=== PATIENT | female | born 1990 | race Caucasian/White ===

== ENCOUNTER 2023-08-28 23:52 | Emergency (ER) | payer SELFPAY ==
[2023-08-29 00:11] VITALS: BP 148/97
[2023-08-29] MEDS: Sodium Chloride 0.9% 1,000 ML IV ONE (00:43)
[2023-08-29] MEDS: diphenhydrAMINE 50 MG/ML SDV IVPUSH ONE (00:44)
[2023-08-29] MEDS: Sodium Chloride 0.9% 2.5 ML Syringe FLUSH PRN (00:44)
[2023-08-29] MEDS: Metoclopramide 10 MG/2 ML SDV IVPUSH ONE (00:44)
[2023-08-29] MEDS: Sodium Chloride 0.9% 10 ML Syringe FLUSH PRN (00:44)
[2023-08-29 01:00] LABS: BASOPHILS ABSOLUTE AUTO 0.02 K/uL (0.00-0.20); BASOPHILS PERCENT AUTO 0.2 % (0.0-1.0); EOSINOPHILS ABSOLUTE AUTO 0.28 K/uL (0.00-0.45); EOSINOPHILS PERCENT AUTO 3.1 % (0.0-6.0); HEMATOCRIT 38.7 % (37.0-47.0); HEMOGLOBIN 13.1 g/dL (12.0-16.0); IMMATURE GRAN ABSOLUTE AUTO 0.04 K/uL (0.00-0.05); IMMATURE GRAN PERCENT AUTO 0.4 % (0.0-0.4); LYMPHOCYTES PERCENT AUTO 31.5 % (24.0-44.0); MEAN CORPUSCULAR HEMOGLOBIN 29.4 pg (28.0-32.0); MEAN CORPUSCULAR HGB CONC 33.9 g/dL (32.0-36.0); MEAN PLATELET VOLUME 8.4 fL (9.4-12.3); MONOCYTES ABSOLUTE AUTO 0.62 K/uL (0.00-0.80); NEUTROPHILS ABSOLUTE AUTO 5.13 K/uL (1.80-7.70); NEUTROPHILS PERCENT AUTO 57.8 % (41.0-71.0); PLATELET COUNT,PLT 245 K/uL (150-400); RED BLOOD CELL COUNT 4.45 M/uL (4.10-5.30); WHITE BLOOD CELL COUNT,WBC 8.89 K/uL (3.9-11.3)
[2023-08-29 01:22] LABS: BLOOD UREA NITROGEN,BUN 9 mg/dL (7.0-18.0); CALCIUM 9.3 mg/dL (8.5-10.1); CARBON DIOXIDE,CO2 29.3 mmol/L (21.0-32.0); CHLORIDE,CL 101 mmol/L (98-107); CREATININE 0.8 mg/dL (0.6-1.0); ESTIMATED GFR 99 mL/min (>60); GLUCOSE RANDOM 129 mg/dL (74-106); POTASSIUM,K 4.1 mmol/L (3.5-5.1); SODIUM,NA 136 mmol/L (136-145)
[2023-08-29] MEDS: Bupivacaine 0.5% 10 ML SDV INJECT ONE (02:09)
[2023-08-29] MEDS: Lidocaine 1% 5 ML VIAL INJECT ONE (02:09)
[2023-08-29] MEDS: Ketorolac 30 MG/ML SDV IVPUSH ONE (02:27)
[2023-08-29 02:57] VITALS: PULSE 87
== END 2023-08-29 02:57 | disposition home or self-care (01) ==
LOC: MW.ED 23:52
DX: R51.9 Headache, unspecified (principal); M54.2 Cervicalgia; Z79.899 Other long term (current) drug therapy; Z90.49 Acquired absence of other specified parts of digestive tract; Z75.8 Other problems related to medical facilities and other health care
CPT/HCPCS: 36415; 64450; 70450; 80048; 85025; 96374; 96375; 99284; J0665; J1200; J1885; J2765; J3490; J7030

== ENCOUNTER 2025-04-29 18:51 | Observation (INO) | payer BC ==
[2025-04-29 19:43] LABS: BASOPHILS ABSOLUTE AUTO 0.02 K/uL (0.00-0.20); BASOPHILS PERCENT AUTO 0.1 % (0.0-1.0); EOSINOPHILS ABSOLUTE AUTO 0.12 K/uL (0.00-0.45); EOSINOPHILS PERCENT AUTO 0.9 % (0.0-6.0); IMMATURE GRAN ABSOLUTE AUTO 0.04 K/uL (0.00-0.05); IMMATURE GRAN PERCENT AUTO 0.3 % (0.0-0.4); LYMPHOCYTES ABSOLUTE AUTO 2.25 K/uL (1.00-4.80); LYMPHOCYTES PERCENT AUTO 16.4 % (24.0-44.0); MEAN PLATELET VOLUME 8.6 fL (9.4-12.3); MONOCYTES ABSOLUTE AUTO 0.72 K/uL (0.00-0.80); MONOCYTES PERCENT AUTO 5.3 % (0.0-8.0); NEUTROPHILS ABSOLUTE AUTO 10.54 K/uL (1.80-7.70); NEUTROPHILS PERCENT AUTO 77.0 % (41.0-71.0); NRBC ABSOLUTE 0.00 K/uL (0.00-0.02); NRBC PERCENT 0.0 /100WBC (0.0-0.2); PLATELET COUNT,PLT 251 K/uL (150-400); RED BLOOD CELL COUNT 4.62 M/uL (4.10-5.30); WHITE BLOOD CELL COUNT,WBC 13.69 K/uL (3.9-11.3)
[2025-04-29] MEDS: Ketorolac 30 MG/ML SDV IVPUSH ONE (19:58)
[2025-04-29] MEDS: Ondansetron 4 MG/2 ML SDV IVPUSH ONE (19:58)
[2025-04-29 20:23] LABS: A/G RATIO 0.9 (0.9-1.6); ALANINE AMINOTRANSFERASE,ALT 47.0 IU/L (14-63); ASPARTATE AMNIOTRANSFERASE,AST 23.0 IU/L (15-37); BILIRUBIN TOTAL 0.4 mg/dL (0.2-1.0); BLOOD UREA NITROGEN,BUN 10.0 mg/dL (7.0-18.0); CARBON DIOXIDE,CO2 28.7 mmol/L (21.0-32.0); CHLORIDE,CL 106.0 mmol/L (98-107); CREATININE 0.9 mg/dL (0.6-1.0); EST CRCL DRUG DOSING (CG) 78.51 mL/min; GLUCOSE RANDOM 118.0 mg/dL (74-106); POTASSIUM,K 4.3 mmol/L (3.5-5.1); PROTEIN TOTAL,TP 7.7 g/dL (6.4-8.2); SODIUM,NA 142.0 mmol/L (136-145)
[2025-04-29 20:25] LABS: ESTIMATED GFR 86.0 mL/min (>60)
[2025-04-29] MEDS: Iopamidol 755 MG/ML 500 ML Multipack Bottle IVPUSH STA (20:55)
[2025-04-29] MEDS: Lactated Ringers 1,000 ML IV SCH (23:08)
[2025-04-30] MEDS: Ondansetron 4 MG/2 ML SDV IVPUSH PRN ×2 (00:43→12:35)
[2025-04-30] MEDS: Ketorolac 30 MG/ML SDV IVPUSH PRN (02:54)
[2025-04-30] MEDS ORDERED: propofoL 1,000 MG/100 ML 100 ML ONE (08:05)
[2025-04-30] MEDS ORDERED: Ropivacaine 0.5% 5 MG/ML 30 ML SDV ONE (08:05)
[2025-04-30] MEDS ORDERED: dexmedeTOMIDine HCl 200 MCG/2 ML SDV ONE (08:06)
[2025-04-30] MEDS ORDERED: fentaNYL 100 MCG/2 ML SDV ONE (08:07)
[2025-04-30] MEDS ORDERED: Morphine 10 MG/ML SDV ONE (08:07)
[2025-04-30] MEDS ORDERED: Lactated Ringers 1,000 ML IV SCH ×2 (08:30→11:15)
[2025-04-30] MEDS ORDERED: Ondansetron 4 MG/2 ML SDV ONE (10:25)
[2025-04-30] MEDS ORDERED: Naloxone 0.4 MG/ML SDV IVPUSH PRN (10:33)
[2025-04-30] MEDS ORDERED: Albuterol 0.083% 2.5 MG/3 ML Neb Soln NEB PRN (10:33)
[2025-04-30] MEDS ORDERED: Ondansetron 4 MG/2 ML SDV IVPUSH PRN (10:33)
[2025-04-30] MEDS ORDERED: fentaNYL 50 MCG/ML SDV IVPUSH PRN (10:33)
[2025-04-30] MEDS ORDERED: Dexamethasone 4 MG/ML 5 ML MDV ONE (11:31)
[2025-04-30] MEDS: Acetaminophen/HYDROcodone 325-5 MG Tab PO PRN (12:35)
[2025-04-30 19:26] VITALS: BP 110/70; PULSE 79
== END 2025-04-30 15:50 | disposition home or self-care (01) ==
LOC: MW.ED 18:51 → MW.MS 21:59
PROVIDERS: ADMIT Surgery; ATTEND Surgery
DX: K35.30 Acute appendicitis with localized peritonitis, without perforation or gangrene (principal)
CPT/HCPCS: 36415; 44970; 74177; 80053; 83690; 84703; 85025; 96361; 96365; 96366; 96375; 96376; 99285; A9270; G0378; J0665; J1100; J1308; J1885; J2003; J2272; J2405; J2543; J2704; J2795; J3010; J7030; J7120; J7999; Q9967; 00840; 64488; 96374; 99283; J0690; J1171; J2371; J3490